=== PATIENT | female | born 1980 | race Caucasian/White ===

== ENCOUNTER 2017-03-14 16:41 | Emergency (ER) | payer MEDICAID, OTHER ==
[~2017-03-14] VITALS: Ht 157.5 cm; Wt 80.0 kg
[~2017-03-14 16:41] MED LIST: HYDR-3498 PO; NORC 5-325 PO; TRAM50TA2 PO
[2017-03-14 16:57] VITALS: Ht 157.5 cm; Wt 80.0 kg
[2017-03-14] MEDS ORDERED: KETOROLAC 60 MG INJ IM STA (20:07)
--- NOTE | 2017-03-14 21:29 | RADRPT ---
PROCEDURE: XR Knee. CLINICAL INDICATION: Left knee pain. TECHNIQUE: Three views of the left knee. COMPARISON: None available FINDINGS: There is no acute fracture or dislocation. The joint spaces are preserved. No joint effusion is id entified. IMPRESSION: 1. No acute fracture or dislocation of the left knee. RPTAT: HTAR .Dario Cantu MD, MD Date Time Electronically viewed and signed by .Dario Cantu MD, on 03/14/2017 21:29 .R/
--- NOTE | 2017-03-14 21:56 | ERD ---
ER Documentation Chief Complaint Date/Time DATE: 03/14/17 TIME: 20:20 Chief Complaint left knee pain HPI 36-year-old female who presents emergency department for a left knee pain. It started yesterday at around 10 PM. Stated that she was playing with her knees when she accidentally twisted it. LMP: 02/18/2017. A0. Denies headache, dizziness, blurry vision, neck pain, shoulder pain, chest pain , back pain, abdominal pain, nausea, vomiting, diarrhea, constipation, loss of bowel bladder control, urinary symptoms, or possibility of being , numbness or tingling sensation, fever, chills. No known drug allergies. No past medical history. Surgical history of C- section 2, cholecystectomy. Does not take any prescription medication at home. Social: Works in a mall. Denies smoking, use of alcoholic beverages, use of illegal drugs. ROS All systems reviewed and are negative except as per history of present illness. Medications Home Meds Active Scripts Cyclobenzaprine Hcl* (Cyclobenzaprine Hcl*) 10 Mg Tablet, 10 MG PO Q12 Y for PAIN, #15 TAB Prov:RASTA ALBERTOAR F 03/14/17 Ibuprofen* (Motrin*) 800 Mg Tab, 800 MG PO Q8 Y for PAIN AND OR ELEVATED TEMP, # 30 TAB Prov:RASTA ALBERTOAR F 03/14/17 Tramadol HCl (Tramadol HCl) 50 Mg Tab, 50 MG PO Q6H Y for PAIN, #30 TAB Prov:SAMMI NOYOLA 12/21/14 Reported Medications Hydrocodone Bit-Acetaminophen* ([place]*) 1 Tab Tab, 2 TAB PO Q4NARC Y 06/08/13 Hydrocodone Bit-Acetaminophen* ([place]*) 1 Tab Tab, 1 TAB PO Q4NARC Y 06/08/13 Allergies Allergies: Coded Allergies: No Known Drug Allergies (Verified Allergy, Mild, 06/04/13) PMhx/Soc History of Surgery: Yes (GALLBLADDER REMOVE 2013,CESARIAN SECTION 2004 AND 2009 ) Anesthesia Reaction: No Hx Neurological Disorder: No Hx Respiratory Disorders: No Hx Cardiac Disorders: No Hx Psychiatric Problems: No Hx Miscellaneous Medical Probl: No Hx Alcohol Use: Yes (N) Hx Substance Use: No Hx Tobacco Use: No Smoking Status: Never smoker Physical Exam Vitals Vital Signs Date Time Temp Pulse Resp B/P Pulse Ox O2 Delivery O2 Flow Rate FiO2 03/14/17 16:57 98.2 97 20 138/98 99 Physical Exam Const: [] Head: Atraumatic Eyes: Normal Conjunctiva ENT: Normal External Ears, Nose and Mouth. Neck: Full range of motion..~ No meningismus. Resp: Clear to auscultation bilaterally Cardio: Regular rate and rhythm, no murmurs Abd: Soft, non tender, non distended. Normal bowel sounds Skin: No petechiae or rashes Back: No midline or flank tenderness Ext: No cyanosis, or edema. Left knee is good and full range of motion but has mild swelling. Left ankle/foot is unremarkable. Right lower extremities unremarkable. Bilateral hips are stable and unremarkable. Neur: Awake and alert Psych: Normal Mood and Affect Results 24 hrs Current Medications Medications (Trade) Dose Ordered Sig/Ellie Route PRN Reason Start Time Stop Time Status Last Admin Dose Admin Ketorolac Tromethamine (Toradol) 60 mg ONCE STAT IM 03/14/17 20:07 03/14/17 20:09 DC 03/14/17 20:31 Procedures/MDM 36-year-old female who presents emergency department for a left knee pain. It started yesterday at around 10 PM. Stated that she was playing with her knees when she accidentally twisted it. LMP: 02/18/2017. A0. Denies headache, dizziness, blurry vision, neck pain, shoulder pain, chest pain , back pain, abdominal pain, nausea, vomiting, diarrhea, constipation, loss of bowel bladder control, urinary symptoms, or possibility of being , numbness or tingling sensation, fever, chills. No known drug allergies. No past medical history. Surgical history of C- section 2, cholecystectomy. Does not take any prescription medication at home. Social: Works in a mall. Denies smoking, use of alcoholic beverages, use of illegal drugs. Physical exam: Left knee is good and full range of motion but has mild swelling. Left ankle/foot is unremarkable. Right lower extremities unremarkable. Bilateral hips are stable and unremarkable. Disease process was explained to the patient. She verbalized understanding and agreed with diagnostic test, treatment, plan of care. X-ray of the left knee: No acute fracture or dislocation of the left knee. Treatment: Toradol IM. Reevaluation: Denies pain. No neurovascular deficits prior to and after the application of Ayden wrap. Differential diagnosis: Fracture versus dislocation versus displacement versus contusion versus sprain Final diagnosis: Knee sprain Prescription: Motrin. Flexeril. Follow-up with primary care physician the next 24-48 hours. Come back to emergency department for any new symptoms or any worsening of symptoms. All questions and concerns were answered. She verbalized understanding and agreed with the plan of care. Hemodynamically stable on discharge. Departure Diagnosis: Primary Impression: Knee pain Additional Impression: Knee sprain Condition: Stable Additional Instructions: Follow-up with primary care physician the next 24-48 hours. Come back to emergency department for any new symptoms or any worsening of symptoms. All questions and concerns were answered. She verbalized understanding and agreed with the plan of care. ONUR ALBERTO Mar 14, 2017 21:56
[2017-03-14] MEDS ORDERED: CYCL-319 PO (22:00)
[2017-03-14] MEDS ORDERED: IBUP800T25 PO (22:00)
== END 2017-03-14 22:07 | disposition home or self-care (01) ==
LOC: FTE 16:41
DX: S83.92XA Sprain of unspecified site of left knee, initial encounter (principal); X50.9XXA Other and unspecified overexertion or strenuous movements or postures, initial encounter; Y92.9 Unspecified place or not applicable
CPT/HCPCS: 73562; 96372; J1885; Z7502

== ENCOUNTER 2017-08-06 16:04 | Emergency (ER) | END 2017-08-06 22:34 | disposition home or self-care (01) ==